=== PATIENT | female | born 1975 | race Caucasian/White ===

== ENCOUNTER 2020-07-23 21:35 | Emergency (ER) | payer BC ==
[~2020-07-23] VITALS: Ht 162.6 cm; Wt 92.8 kg
--- NOTE | 2020-07-23 21:44 | PHYS DOC ---
Past History Past Medical History: Anxiety, GERD, Hypertension, Other Past Surgical History: Other General Adult EDM: Chief Complaint: CHEST PAIN HPI: HPI: ".. I am having chest pain...it's been going on now... for 2 days... It is sharp.. in center of my chest.. I though it was acid... reflux... but now it is going up into my neck on the Lt. ... I have in the past I had some problems with fast heart rate.. I ve seen T[facility].. once.. in 2017.. and he did some tests on me... but never really found anything.. ...I got really worried.. because my dad of massive CO at age 54... ".. " My top BP at home 170 /90.. so I decided to come in..." Patient is a 44 year old female who presents with above hx and complaints central intermittent chest pain that radiates into her left neck. Pain comes up from epigastric to sternal then some time in to neck. Pain is described as sharp and severe. There does appear to be some association with deep breaths and movement. Some association to GERD and reflux. Patient denies any history of previous angina or infarcts. Patient did have a history of supra ventricular tachycardia episodes and was evaluated by Dr. Titus. Patient denies any history of DVTs or pulmonary embolisms. No recent travel. No history of trauma. No history of specific ill contacts. Has had problems in the past with GERD. Patient denies any episodes of tachycardia or current episodes of chest pain. Patient follows with primary Dr. Banegas. No history of fever or chills. No history of productive cough. Pt. is still smoking. Review of Systems: Review of Systems: Constitutional: Denies fever or chills Eyes: Denies change in visual acuity HENT: Denies nasal congestion or sore throat Respiratory: Denies cough or shortness of breath Cardiovascular: Complains of sharp chest pain GI: Some epigastric abdominal pain,. Denies tarry stools. Denies nausea, vomiting, bloody stools or diarrhea : Denies dysuria Musculoskeletal: Denies back pain or joint pain Integument: Denies rash Neurologic: Denies headache, focal weakness or sensory changes Endocrine: Denies polyuria or polydipsia Lymphatic: Denies swollen glands Psychiatric: Denies depression . Complaints anxiety Family History: Family History: Father of a major CO at age 54 Current Medications: Current Meds: See nursing for home meds Allergies: Allergies: Allergic to penicillins Physical Exam: PE: Constitutional: Moderate acute distress, non-toxic appearance. [] HENT: Normocephalic, atraumatic, bilateral external ears normal, oropharynx mois t, no oral exudates, nose normal. [] Eyes: PERRLA, EOMI, conjunctiva normal, no discharge. [] Neck: Normal range of motion, no tenderness, supple, no stridor. [] Cardiovascular:Heart rate regular rhythm, no murmur. Lungs & Thorax: Bilateral breath sounds equal at apex with auscultation [] The chest wall is nontender to palpation Abdomen: Bowel sounds normal, soft, some epi gastric tenderness, no masses, no pulsatile masses. Patient declines rectal exam at this time denies any tarry stools. Some rebound to epigastric area. Skin: Warm, dry, no erythema, no rash. [] Back: No tenderness, no CVA tenderness. [] Extremities: No tenderness, no cyanosis, no clubbing, ROM intact, no edema. No cording in legs Neurologic: Alert and oriented X 3, normal motor function, normal sensory function, no focal deficits noted. [] Psychologic: Affect anxious, judgement normal, mood normal. [] EKG: EKG: My interpretation of EKG shows a sinus rhythm at 63 bpm. No acute morphology. [] My interpretation of second EKG at 0200 hrs.. Shows a sinus bradycardia at 53 bpm. No findings of acute morphology. No interval change except slightly slower rate. 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 PHYSICIAN: ANDREA RODRIGUEZ MD REASON: Sharp chest pain, some respiratory inducement, ELEVATED D-DIMER PROCEDURE: CT ANGIOGRAPHY CHEST EXAM: CT ANGIOGRAPHY OF THE CHEST WITH AND WITHOUT CONTRAST. HISTORY: Chest pain, elevated d-dimer. TECHNIQUE: Computed tomographic angiography of the chest was performed before and after the intravenous administration of iodinated contrast. 3-D maximum intensity projections were also performed. One or more of the following individualized dose reduction techniques were utilized for this examination: 1. Automated exposure control. 2. Adjustment of the mA and/or kV according to patient size. 3. Use of iterative reconstruction technique. COMPARISON: None. FINDINGS: Images of the upper abdomen reveal a 3 mm calculus in the right renal upper pole. Bone windows reveal no suspicious lesions. No pulmonary emboli are identified. There is no aortic dissection or aneurysm. There are no pathologically enlarged mediastinal or axillary lymph nodes. There is no pleural or pericardial effusion. The heart is not enlarged. Lung windows reveal mild basilar atelectasis. There is a calcified granuloma in the right upper lobe. IMPRESSION: 1. No pulmonary embolism. 2. 3 mm right renal calculus. 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 PHYSICIAN: ANDREA RODRIGUEZ MD REASON: CP PROCEDURE: PORTABLE CHEST 1V EXAM: CHEST ONE VIEW. HISTORY: Chest pain. COMPARISON: None. FINDINGS: A frontal view of the chest is obtained. There are no confluent infiltrates. There is mild atelectasis in the left base. There is no pneumothorax or pleural effusion. The heart is not enlarged. IMPRESSION: 1. No confluent infiltrates. Electronically signed by: Fara Nascimento MD (07/24/2020 1:09 AM) [facility] DICTATED AND SIGNED BY: ROLANDA NASCIMENTO MD DATE: 07/24/20108 CC: JOSE ANTONIO BANEGAS MD; ANDREA RODRIGUEZ MD ~ Heart Score: HEART Score for Chest Pain: HEART Score for Chest Pain Response (Comments) Value History Slighlty/Non-Suspicious 0 ECG Normal 0 Age < 45 0 Risk Factors 1 or 2 Risk Factors 1 Troponin < Normal Limit 0 Total 1 Risk Factors: Risk Factors: DM, Current or recent (<one month) smoker, HTN, HLP, family history of CAD, obesity. Risk Scores: Score 0 - 3: 2.5% MACE over next 6 weeks - Discharge Home Score 4 - 6: 20.3% MACE over next 6 weeks - Admit for Clinical Observation Score 7 - 10: 72.7% MACE over next 6 weeks - Early Invasive Strategies Course & Med Decision Making: Course & Med Decision Making Pertinent Labs and Imaging studies reviewed. (See chart for details) Repeat trop. Normal and no change 0.017. Repeat EKG showed no acute morphology. Bradycardia at rate 53. Reviewed at length risk and benefits admission transfer discharge.. Reviewed all labs and EKG and CT findings with patient. Patient currently without symptoms and requests to be discharged home. Patient declining admission. Patient dec lining transfer to [facility]. Patient exhibits UCAR capacity of risks in her decision to go home. Patient is a take a daily 81 mg aspirin daily and take Pepcid 20 mg twice a day. Patient to call for follow-up appointment with Dr. Titus. Patient fo llow-up with Dr. Banegas. Pt. return if any concerns. Must stop smoking. Impression: 1. Pleuritic chest pain 2. Very mild elevation D-dimer 0.87 3. Very mild hypokalemia 3.4 [] Dragon Disclaimer: Dragon Disclaimer: This electronic medical record was generated, in whole or in part, using a voice recognition dictation system. Departure Departure: Disposition: HOME SELF CARE/HOMELESS Condition: STABLE Referrals: JOSE ANTONIO BANEGAS MD (PCP) Scripts Aspirin (ASPIRIN) 81 Mg Tab.chew 81 MG PO DAILY for cp, #30 TAB Prov: ANDREA RODRIGUEZ MD 07/24/20 Famotidine (PEPCID AC) 10 Mg Tablet 20 MG PO BID for gerd, #60 TAB Prov: ANDREA RODRIGUEZ MD 07/24/20 Dragfidelia Disclaimer This chart was dictated in whole or in part using Voice Recognition software in a busy, high-work load, and often noisy Emergency Department environment. It may contain unintended and wholly unrecognized errors or omissions. ANDREA RODRIGUEZ MD Jul 23, 2020 21:44
[2020-07-23] MEDS: IV RINGERS SOLUTION,LACTATED 1,000 ML IV SCH (22:03)
[2020-07-23] MEDS: ASPIRIN CHEWABLE 81 MG TABLET. PO ONE (22:04)
[2020-07-23 22:20] LABS: BASO # 0.9 x10^3/uL (0.0-0.2); BASO % 9 % (0-3); EOS # 0.5 x10^3/uL (0.0-0.7); EOS % 4 % (0-3); HEMATOCRIT 44.3 % (36.0-47.0); HEMOGLOBIN 14.6 g/dL (12.0-15.5); LYMPH # 3.5 x10^3/uL (1.0-4.8); LYMPH % 32 % (24-48); MEAN CORPUSCULAR HEMOGLOBIN 32 pg (25-35); MEAN CORPUSCULAR HGB CONC 33 g/dL (31-37); MEAN CORPUSCULAR VOLUME 97 fL (79-100); MONO # 0.7 x10^3/uL (0.0-1.1); MONO % 7 % (0-9); NEUT # 5.2 x10^3uL (1.8-7.7); NEUT % 48 % (31-73); PLATELET COUNT 241 x10^3/uL (140-400); RED BLOOD COUNT 4.58 x10^6/uL (3.50-5.40); RED CELL DISTRIBUTION WIDTH 14.3 % (11.5-14.5); WHITE BLOOD COUNT 10.7 x10^3/uL (4.0-11.0)
[2020-07-23 22:22] LABS: CALCIUM 8.8 mg/dL (8.5-10.1); POTASSIUM 3.4 mmol/L (3.5-5.1)
[2020-07-23 22:28] LABS: ALBUMIN 3.3 g/dL (3.4-5.0); DIRECT BILIRUBIN 0.1 mg/dL (0.0-0.2); MAGNESIUM 2.2 mg/dL (1.8-2.4); TOTAL BILIRUBIN 0.1 mg/dL (0.2-1.0)
[2020-07-23 23:48] LABS: BARBITURATES NEG (NEG); BENZODIAZEPINES POS (NEG); CANNABINOIDS NEG (NEG); COCAINE NEG (NEG); METHADONE NEG (NEG); OPIATES POS (NEG); PHENCYCLIDINE NEG (NEG)
[2020-07-23 23:49] LABS: AMPHETAMINE/METHAMPHETAMINE NEG (NEG)
[2020-07-23 23:54] LABS: BACTERIA,URINE 0 /HPF (0-FEW); BILIRUBIN,URINE NEG (NEG); CLARITY,URINE CLEAR; COLOR,URINE YELLOW; GLUCOSE,URINE NEG (NEG); NITRITE,URINE NEG (NEG); RBC,URINE 0 /HPF (0-2); SQUAMOUS EPITHELIAL CELL,UR OCC /LPF; UROBILINOGEN,URINE 0.2 mg/dL (0.2 mg/dL); WBC,URINE OCC /HPF (0-4)
[2020-07-24] MEDS ORDERED: CONTRAST GIVEN. MC PRN (01:00)
[2020-07-24] MEDS: IOHEXOL 350 MG/ML 100 ML VIAL. IV ONE (01:08)
--- NOTE | 2020-07-24 01:12 | RAD ---
EXAM: CHEST ONE VIEW. HISTORY: Chest pain. COMPARISON: None. FINDINGS: A frontal view of the chest is obtained. There are no confluent infiltrates. There is mild atelectasis in the left base. There is no pneumothorax or pleural effusion. The heart is not enlarged. IMPRESSION: 1. No confluent infiltrates. Electronically signed by: Fara Nascimento MD (07/24/2020 1:09 AM) [facility]
[2020-07-24] MEDS: IV RINGERS SOLUTION,LACTATED 1,000 ML IV ONE (02:05)
--- NOTE | 2020-07-24 02:05 | EKG ---
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
--- NOTE | 2020-07-24 02:07 | EKG ---
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
--- NOTE | 2020-07-24 02:28 | RAD ---
EXAM: CT ANGIOGRAPHY OF THE CHEST WITH AND WITHOUT CONTRAST. HISTORY: Chest pain, elevated d-dimer. TECHNIQUE: Computed tomographic angiography of the chest was performed before and after the intravenous administration of iodinated contrast. 3-D maximum intensity projections were also performed. One or more of the following individualized dose reduction techniques were utilized for this examination: 1. Automated exposure control. 2. Adjustment of the mA and/or kV according to patient size. 3. Use of iterative reconstruction technique. COMPARISON: None. FINDINGS: Images of the upper abdomen reveal a 3 mm calculus in the right renal upper pole. Bone windows reveal no suspicious lesions. No pulmonary emboli are identified. There is no aortic dissection or aneurysm. There are no pathologically enlarged mediastinal or axillary lymph nodes. There is no pleural or pericardial effusion. The heart is not enlarged. Lung windows reveal mild basilar atelectasis. There is a calcified granuloma in the right upper lobe. IMPRESSION: 1. No pulmonary embolism. 2. 3 mm right renal calculus. Electronically signed by: Fara Nascimento MD (07/24/2020 2:26 AM) [facility]
[2020-07-24] MEDS ORDERED: FAMO10TA26 PO (03:04)
[2020-07-24] MEDS ORDERED: ASPI-630 PO (03:04)
[2020-07-24] MEDS: KETOROLAC 30 MG/ML VIAL. IVP ONE (03:07)
[2020-07-24] MEDS: FAMOTIDINE 20 MG/2 ML VIAL IVP ONE (03:07)
[2020-07-24 03:30] VITALS: BP 110/64
== END 2020-07-24 03:35 | disposition home or self-care (01) ==
LOC: ER 21:35
DX: R07.81 Pleurodynia (principal); R79.1 Abnormal coagulation profile; E87.6 Hypokalemia; R10.13 Epigastric pain; F41.9 Anxiety disorder, unspecified; K21.9 Gastro-esophageal reflux disease without esophagitis; I10 Essential (primary) hypertension; Z88.0 Allergy status to penicillin
CPT/HCPCS: 36415; 71045; 80048; 80076; 80307; 81001; 81025; 82550; 83690; 83735; 84443; 84484; 85025; 85379; 85610; 85730; 93005; 96361; 96374; 96375; 99285; J1885; J3490; J7120; Q9967

== ENCOUNTER → 2021-10-29 | Outpatient (CLI) | payer BC ==
[~2021-10-29] MED LIST: ASPI-630 PO; FAMO10TA26 PO
--- NOTE | 2021-10-29 16:50 | RAD ---
EXAM: Abdomen, 2 views. HISTORY: Right flank pain. COMPARISON: None. FINDINGS: Frontal views of the abdomen and pelvis are obtained. There is a small of gas and stool wit hin the colon. There is no evidence of bowel obstruction. There is no convincing nephroureterolithias is. There are multiple pelvic phleboliths. There is an IUD overlying the pelvis. IMPRESSION: Nonobstructive bowel gas pattern. No convincing nephroureterolithiasis. Electronically signed by: Lucinda Navarro MD (10/29/2021 4:48 PM) [id number]
== END ==
LOC: RAD 16:08
PROVIDERS: ATTEND Internal Medicine
DX: R14.3 Flatulence (principal); R10.9 Unspecified abdominal pain
CPT/HCPCS: 74019